=== PATIENT | female | born 1995 | race Caucasian/White ===

== ENCOUNTER 2019-09-20 05:00 | Inpatient (IN) ==
[2019-09-20] MEDS ORDERED: Famotidine 20 MG/2 ML VIAL IVP PRN (09:09)
[2019-09-20] MEDS ORDERED: Ondansetron 4 MG/2 ML VIAL IVP PRN (09:09)
[2019-09-20] MEDS ORDERED: Naloxone 0.4 MG/ML INJ IVP PRN (09:09)
[2019-09-20] MEDS ORDERED: Penicillin G Potassium 5,000,000 UNIT in 0.9 % Sodium Chloride Mini Bag 100 ML IVPB ONE (09:33)
[2019-09-20 10:05] LABS: Basophils % 0.2 %; Eosinophils # 0.1 K/mcL (0.0-0.6); Eosinophils % 1.1 %; Hematocrit 35.6 % (35.3-44.9); Hemoglobin 11.6 g/dL (11.5-15.4); Immature Granulocytes % 0.7 % (0-4); Lymphocytes # 1.8 K/mcL (0.6-4.6); Mean Corpuscular HGB Conc 32.6 g/dL (31.6-35.5); Mean Corpuscular Hemoglobin 28.8 pg (28.0-33.3); Mean Corpuscular Volume 88.3 fL (83.0-100.0); Monocytes # 0.6 K/mcL (0.0-1.3); Monocytes % 6.1 %; Neutrophils # 6.5 K/mcL (1.6-8.9); Platelet Count 210 K/mcL (140-400); Red Blood Count 4.03 M/mcL (3.82-4.97); Segmented Neutrophils % 71.9 %; White Blood Count 9.1 K/mcL (4.3-11.1)
[2019-09-20] MEDS: Ringers Solution, Lactated 1,000 ML IVC SCH ×3 (10:05→23:05)
[2019-09-20 10:15] LABS: Amphetamine Screen,Urine Negative ng/mL (Cutoff=1000); Barbiturate Screen,Urine Negative ng/mL (Cutoff=200); Benzodiazepines Screen,Urine Negative ng/mL (Cutoff=200); Cannabinoid Screen,Urine Negative ng/mL (Cutoff = 50); Cocaine Screen,Urine Negative ng/mL (Cutoff= 300); Opiate Screen,Urine Negative ng/mL (Cutoff=300); Phencyclidine Screen,Urine Negative ng/mL (Cutoff=25)
[2019-09-20] MEDS ORDERED: Oxytocin 20 units/ LR 1000 mL 20 UNIT/1,000 ML BAG IVC SCH (11:15)
[2019-09-20] MEDS ORDERED: *HR* FentaNYL (PF) 100 MCG/2 ML VIAL IVP PRN (12:58)
[2019-09-20] MEDS: Penicillin G Potassium 2,500,000 UNIT in 0.9 % Sodium Chloride 100 ML IVPB SCH ×3 (14:33→23:05)
[2019-09-20] MEDS ORDERED: *HR* FentaNYL (PF) 100 MCG/2 ML VIAL ONE (16:16)
[2019-09-20] MEDS ORDERED: Ropivacaine/PF 0.2% 20 ML VIAL ONE (16:16)
[2019-09-20] MEDS ORDERED: Epidural Premix (fent/bupiv) 110 ML EP ONE (16:17)
[2019-09-20] MEDS ORDERED: EPHEDrine 50 MG/ML VIAL IVP PRN (17:34)
[2019-09-20] MEDS ORDERED: *HR* FentaNYL (PF) 100 MCG/2 ML VIAL EP ONE (17:34)
[2019-09-20] MEDS ORDERED: Ropivacaine/PF 0.2% 20 ML VIAL EP ONE (17:34)
[2019-09-20] MEDS ORDERED: Epidural Premix (fent/bupiv) 110 ML EP SCH (17:45)
[2019-09-21] MEDS: Penicillin G Potassium 2,500,000 UNIT in 0.9 % Sodium Chloride 100 ML IVPB SCH ×2 (03:24→08:10)
[2019-09-21] MEDS ORDERED: CeFAZolin 2,000 MG/50 ML BAG IVPB ONE (08:43)
[2019-09-21] MEDS ORDERED: Oxytocin 20 units/ LR 1000 mL 20 UNIT/1,000 ML BAG IVC ONE (08:43)
[2019-09-21] MEDS ORDERED: Famotidine 20 MG/2 ML VIAL IVP ONE (08:43)
[2019-09-21] MEDS ORDERED: Metoclopramide 10 MG/2 ML VIAL IVP ONE (08:43)
[2019-09-21] MEDS ORDERED: Azithromycin 500 MG in 0.9 % Sodium Chloride 250 ML IVPB ONE (08:44)
[2019-09-21] MEDS ORDERED: Ringers Solution, Lactated 1,000 ML IVC SCH ×2 (08:45→12:05)
[2019-09-21] MEDS: Ringers Solution, Lactated 1,000 ML IVC SCH (08:47)
[2019-09-21] MEDS ORDERED: Acetaminophen IV 1,000 MG/100 ML INFUS..BTL ONE (08:50)
[2019-09-21] MEDS ORDERED: *HR* FentaNYL (PF) 100 MCG/2 ML VIAL ONE (08:50)
[2019-09-21] MEDS ORDERED: Lidocaine/EPI 1:200k 2% PF 20 ML VIAL ONE (08:50)
[2019-09-21] MEDS ORDERED: Sodium Bicarbonate 50 MEQ/50 ML VIAL ONE (08:50)
[2019-09-21] MEDS ORDERED: *HR* Phenylephrine 10 MG/ML VIAL ONE (09:02)
[2019-09-21] MEDS ORDERED: Ringers Solution, Lactated 1,000 ML ONE (09:02)
[2019-09-21] MEDS ORDERED: EPHEDrine 50 MG/ML VIAL ONE (09:26)
[2019-09-21] MEDS ORDERED: Ondansetron 4 MG/2 ML VIAL ONE (09:31)
[2019-09-21] MEDS ORDERED: *HR* Oxytocin 10 UNIT/ML VIAL IM ONE (09:37)
[2019-09-21] MEDS ORDERED: Ketorolac 30 MG/ML VIAL ONE (09:45)
[2019-09-21] MEDS ORDERED: *HR* Promethazine 25 MG/ML VIAL ONE (09:49)
[2019-09-21] MEDS ORDERED: *HR* Morphine Sulfate/PF 10 MG/10 ML AMPUL ONE (09:53)
[2019-09-21] MEDS ORDERED: Ondansetron 4 MG/2 ML VIAL IVP PRN (12:05)
[2019-09-21] MEDS ORDERED: Oxytocin 20 units/ LR 1000 mL 20 UNIT/1,000 ML BAG IVC SCH ×2 (12:05)
[2019-09-21] MEDS ORDERED: Metoclopramide 10 MG/2 ML VIAL IVP PRN (12:05)
[2019-09-21] MEDS ORDERED: Simethicone 80 MG TAB.CHEW PO PRN (12:05)
[2019-09-21] MEDS ORDERED: Sennosides 8.6 MG TABLET PO PRN (12:05)
[2019-09-21] MEDS ORDERED: *HR* OxyCODONE/APAP 5/325 TABLET PO PRN (12:05)
[2019-09-21] MEDS: Ibuprofen 600 MG TABLET PO PRN ×2 (13:32→20:33)
[2019-09-22] MEDS: Ibuprofen 600 MG TABLET PO PRN ×3 (04:47→23:01)
[2019-09-22] MEDS: Prenatal Vit/FA 1 EACH TABLET PO SCH (08:15)
[2019-09-22 09:22] LABS: Basophils % 0.3 %; Eosinophils # 0.1 K/mcL (0.0-0.6); Eosinophils % 0.6 %; Hematocrit 31.4 % (35.3-44.9); Hemoglobin 10.2 g/dL (11.5-15.4); Immature Granulocytes % 0.7 % (0-4); Lymphocytes # 2.6 K/mcL (0.6-4.6); Lymphocytes % 27.1 %; Mean Corpuscular HGB Conc 32.5 g/dL (31.6-35.5); Mean Corpuscular Hemoglobin 29.1 pg (28.0-33.3); Mean Corpuscular Volume 89.5 fL (83.0-100.0); Monocytes # 0.8 K/mcL (0.0-1.3); Monocytes % 8.6 %; Neutrophils # 6.1 K/mcL (1.6-8.9); Platelet Count 213 K/mcL (140-400); Red Blood Count 3.51 M/mcL (3.82-4.97); Red Cell Distribution Width 14.2 % (11.5-14.5); Segmented Neutrophils % 62.7 %; White Blood Count 9.7 K/mcL (4.3-11.1)
[2019-09-22] MEDS: Acetaminophen 325 MG TABLET PO PRN (16:36)
[2019-09-23] MEDS: Acetaminophen 325 MG TABLET PO PRN ×2 (00:57→07:39)
[2019-09-23] MEDS: *HR* OxyCODONE Immed Rel 5 MG TABLET PO PRN ×2 (00:59→09:44)
[2019-09-23] MEDS: Ibuprofen 600 MG TABLET PO PRN (05:42)
[2019-09-23 07:28] VITALS: BP 150/91
[2019-09-23] MEDS: Prenatal Vit/FA 1 EACH TABLET PO SCH (07:38)
== END 2019-09-23 11:00 | disposition home or self-care (01) | DRG 787 ==
LOC: 1NENULAB 08:44 → 1NENUOBS 09-21 12:16
PROVIDERS: ADMIT Student in an Organized Health Care Education/Training Program; ATTEND Student in an Organized Health Care Education/Training Program